=== PATIENT | female | born 1970 | race Caucasian/White ===

== ENCOUNTER 2018-04-12 12:30 | Outpatient (CLI) | payer OTHER ==
--- NOTE | 2018-04-12 13:13 | DI ---
EXAM: CHEST FRONTAL AND LATERAL VIEWS HISTORY: Cough. COMPARISON: None FINDINGS: The patient position limits exam. Heart size upper limit normal. Subtle left base density may represent atelectasis or pneumonia. There is no active congestive heart failure/fluid overload. There is no visible pleural fluid or pneumothorax. Questionable 7 mm right upper lobe nodule versu s superimposition artifact. IMPRESSION: 1. Cannot exclude minimal left base pneumonia or atelectasis. 2. Questionable right upper lobe nodule. Consider follow-up full inspiration standing PA and latera l chest radiography when possible.
== END 2018-04-12 12:31 | disposition home or self-care (01) ==
LOC: LAB 12:30
PROVIDERS: ATTEND Physician Assistant
DX: R05 Cough (principal)
CPT/HCPCS: 36415; 85025